=== PATIENT | female | born 1985 | race Caucasian/White ===

== ENCOUNTER 2018-01-09 15:59 | Outpatient (REF) | payer BC, SELFPAY ==
[2018-01-09 21:11] LABS: Abs Immature Grans 0.06 k/cumm (0.0-0.09); Absolute Basophil Count 0.06 k/cumm (0.0-0.2); Absolute Eosinophil Count 0.32 k/cumm (0.0-0.7); Absolute Lymphocyte Count 3.63 k/cumm (1.2-3.4); Absolute Neutrophil Count 10.35 k/cumm (1.2-6.7); Basophils % 0.4; Eosinophils % 2.1; HCT 41.1 % (36.0-46.0); Immature Grans % 0.4; Lymphocytes % 23.6; Mean Corp. HGB Concentration 31.6 g/dL (32.0-36.0); Mean Corpuscular Hemoglobin 26.9 pg (27.0-33.0); Mean Corpuscular Volume 84.9 fL (80-95); Mean Platelet Volume 12.7 fL (8.0-11.0); Monocytes % 6.2; Neutrophils % 67.3; Platelet Count 357 x1000/uL (130-400); Prothrombin Time 9.4 sec (9.3-10.8); RBC 4.84 m/cumm (4.00-5.20); RBC Distribution Width 15.9 % (11.7-14.6); White Blood Cell Count 15.38 k/cumm (4.4-10.8)
[2018-01-09 21:14] LABS: Absolute Monocyte Count 0.95 k/cumm (0.11-0.7)
[2018-01-09 21:25] LABS: ALT 33 U/L (12-78); AST 23 U/L (15-37); Albumin 3.9 g/dL (3.4-5.0); Alkaline Phosphatase 92 U/L (46-116); Anion Gap 13.8 mmol/L (3-11); BUN 13 mg/dL (7-18); Bilirubin, Total 0.3 mg/dL (0.2-1.0); C-Reactive Protein 2.03 mg/dL (0.0-0.3); CO2 20.2 mmol/L (21.0-32.0); CREATININE 1.01 mg/dL (0.55-1.02); Calcium 9.4 mg/dL (8.5-10.1); Chloride 104 mmol/L (98-107); Creatine Kinase 69 U/L (26-192); Glucose 74 mg/dL (70-100); Potassium 4.5 mmol/L (3.5-5.1); Sodium 138 mmol/L (136-145); TSH (W/Ref FT4) 1.23 uIU/mL (0.358-3.74)
[2018-01-09 21:46] LABS: ESR 61 MM/HR (0-20)
[2018-01-13 12:43] LABS: Rheumatoid Factor 8 IU/mL (<12.5)
[2018-01-13 14:56] LABS: ANA Interpretation Negative (NEGAT)
== END 2018-01-09 16:19 ==
LOC: NCHCN 15:59
PROVIDERS: PCP Physician Assistant Medical; Visit Provider Physician Assistant Medical
DX: R04.0 Epistaxis (principal); R42 Dizziness and giddiness; M54.5 Low back pain; R70.0 Elevated erythrocyte sedimentation rate
CPT/HCPCS: 80053; 82550; 85652; 84443; 85025; 85610; 85730; 86038; 86140; 86431

== ENCOUNTER 2018-01-14 13:00 | Outpatient (CLI) | payer BC, SELFPAY ==
--- NOTE | 2018-01-14 13:40 | DI.RAD_ITS ---
SYMPTOMS/DIAGNOSIS: BILATERAL KNEE PAIN LEFT KNEE: Three views. No priors. The joint spaces are well maintained. The articular surfaces are unremarkable. There are small enthesophytes at the superior and inferior patella. The bones are intact and normally mineralized. The soft tissues are unremarkable. IMPRESSION: Negative examination. RIGHT KNEE: Three views. Comparison is 07/19/16. There is mild narrowing at the medial femorotibial joint space. Periarticular spurring is seen involving all three joint compartments, particularly the medial femorotibial joint. The bones are intact and normally mineralized. The soft tissues are unremarkable. IMPRESSION: Stable mild to moderate degenerative changes of the right knee.
== END 2018-01-14 13:20 ==
PROVIDERS: PCP Physician Assistant Medical; Visit Provider Student in an Organized Health Care Education/Training Program
DX: M25.561 Pain in right knee (principal); M25.562 Pain in left knee; M17.11 Unilateral primary osteoarthritis, right knee
CPT/HCPCS: 73562

== ENCOUNTER 2018-01-26 15:10 | Outpatient (CLI) | payer BC, SELFPAY ==
[2018-01-28 13:36] LABS: HLA-B27 Result Negative
== END 2018-01-26 15:30 ==
PROVIDERS: PCP Physician Assistant Medical; Visit Provider Otolaryngology Otolaryngology/Facial Plastic Surgery
DX: R70.0 Elevated erythrocyte sedimentation rate (principal); M54.5 Low back pain
CPT/HCPCS: 36415; 86812

== ENCOUNTER 2018-01-29 00:58 | Outpatient (CLI) | payer BC, SELFPAY ==
--- NOTE | 2018-01-29 07:52 | DI.RAD_ITS ---
SYMPTOMS/DIAGNOSIS: NATIVIDAD KNEE INJECTIONS, OSTEOARTHRITIS BOTH KNEES, MORBID OBESITY Fluoroscopy Time: 2 sec Spot films obtained demonstrate injections of contrast material into both knees with needles positioned over the lateral tibiofemoral joint. Please see Dr. Newell's procedure report for further information.
[2018-01-29] MEDS: Omnipaque 300 MG/ML 10 ML BTL IJ ×2 (09:48→09:53)
[2018-01-29] MEDS: methylPREDNISolone ACETATE 80 MG/ML VIAL IM ×2 (09:51→09:55)
[2018-01-29] MEDS: Bupivacaine 0.5% Pres-Free 10 ML VIAL 30 ML IJ ×2 (09:51→09:54)
[2018-01-29] MEDS: Lidocaine 2% Multi-Dose 20 ML VIAL IJ ×2 (09:53→09:55)
--- NOTE | 2018-01-29 12:58 | W.PROCNOTE ---
Date of service: 01/29/18 Time of Service: 09:58 Procedure Note Date of procedure: 01/29/18 Procedure: Bilateral Knee Injection with Fluoroscopic Guidance Surgeon/Proceduralist/Physician: Gabino Newell Procedure Diagnosis: Bilateral Knee Pain Procedure Indications: Sanam has had persistent pain of the bilateral knees. Noninvasive measures have been tried. To serve as both diagnostic and therapeutic, an injection under fluoroscopy was recommended due to her morbid obesity. I had discussed the risks of the procedure and the patient elected to proceed. Procedure Description: Sanam was greeted in the flouroscopy room. The correct side was identified and the consent was reviewed with the patient and signed. The patient was then placed in the supine position on the fluoroscopy table. The LEFT knee was then prepped with Chloraprep. The superolateral injection starting point was identiifed by bony landmarks and fluoroscopy. The skin and soft tissue in the tract of the injection was anesthetized with 1% Lidocaine. A spinal needle was then inserted deep into the knee at the level of the superior patella under fluoroscopic guidance. However, I was unable to confidently get into the knee joint. A small amount of Omnipaque solution was injected which showed I was not in the joint. I then prepped the anterolateral aspect of the knee and approached the knee from the anterior position. After the skin was anesthetized the spinal needle was advanced into the joint. A small amount of Omnipaque was then used to confirm intraarticular placement. Once confirmed, the knee was injected with 5cc of 0.5% Bupivicaine and 80mg of Depo-Medrol. A bandaid was placed on the injection site. Sanam was repositioned on the fluoro table. The anterior aspect of the right knee was then prepped with Chloraprep. After the skin was anesthetized with 1% Lidocaine, the spinal needle was advanced into the joint. A small amount of Omnipaque was then used to confirm intraarticular placement. Once confirmed, the knee was injected with 5cc of 0.5% Bupivicaine and 80mg of Depo-Medrol. A bandaid was placed on the injection site. The patient tolerated the procedure well and noted improvement in pre-injection pain.
== END 2018-01-29 01:18 ==
PROVIDERS: PCP Physician Assistant Medical; Visit Provider Student in an Organized Health Care Education/Training Program
DX: M25.561 Pain in right knee (principal); M25.562 Pain in left knee
CPT/HCPCS: 20610; 77002; J1040; J3490

== ENCOUNTER 2018-02-03 13:17 | Emergency (ER) | payer BC, SELFPAY ==
[2018-02-03] VITALS (19 sets, daily range): BP systolic 93–143; BP diastolic 67–91; PULSE 81–110; RESP 16–27; TEMP 36.6; O2SAT 98–100
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
[2018-02-03] MEDS: Meclizine 25 MG TAB PO (14:37)
[2018-02-03] MEDS: Normal Saline 1,000 ML 1000 ML IV (15:00)
[2018-02-03 15:24] LABS: Abs Immature Grans 0.12 k/cumm (0.0-0.09); Absolute Basophil Count 0.06 k/cumm (0.0-0.2); Absolute Eosinophil Count 0.47 k/cumm (0.0-0.7); Absolute Monocyte Count 1.25 k/cumm (0.11-0.7); Absolute Neutrophil Count 14.26 k/cumm (1.2-6.7); Basophils % 0.3; Eosinophils % 2.4; HCT 37.4 % (36.0-46.0); HGB 11.8 g/dL (12.0-15.5); Immature Grans % 0.6; Lymphocytes % 17.4; Mean Corp. HGB Concentration 31.6 g/dL (32.0-36.0); Mean Corpuscular Hemoglobin 27.1 pg (27.0-33.0); Mean Platelet Volume 11.3 fL (8.0-11.0); Monocytes % 6.4; Neutrophils % 72.9; Platelet Count 318 x1000/uL (130-400); RBC 4.35 m/cumm (4.00-5.20); RBC Distribution Width 16.3 % (11.7-14.6); White Blood Cell Count 19.56 k/cumm (4.4-10.8)
[2018-02-03 15:34] LABS: Bilirubin Negative (Negative); Blood Negative (Negative); Clarity Clear; Glucose Negative (Negative); Ketones Negative (Negative); Leukocyte Esterase Trace (Negative); Nitrite Negative (Negative); Specific Gravity 1.015 (1.005-1.025); Urobilinogen 0.2 EU/dL (Up TO 0.2); pH 5.5 (5-8)
[2018-02-03 15:41] LABS: ALT 22 U/L (12-78); AST 11 U/L (15-37); Albumin 3.1 g/dL (3.4-5.0); Alkaline Phosphatase 84 U/L (46-116); Anion Gap 8.1 mmol/L (3-11); BUN 14 mg/dL (7-18); Bilirubin, Total 0.5 mg/dL (0.2-1.0); CO2 24.9 mmol/L (21.0-32.0); CREATININE 0.88 mg/dL (0.55-1.02); Calcium 8.8 mg/dL (8.5-10.1); Chloride 104 mmol/L (98-107); Glucose 93 mg/dL (70-100); Magnesium 2.3 mg/dL (1.8-2.4); Potassium 4.1 mmol/L (3.5-5.1); Sodium 137 mmol/L (136-145)
[2018-02-03 15:50] LABS: RBC 0-2 (0-2)
--- NOTE | 2018-02-03 15:50 | DI.RAD_ITS ---
SYMPTOMS/DIAGNOSIS: NEAR SYNCOPE PA AND LATERAL CHEST: The heart is normal in size. The lungs are clear. The mediastinal structures and pleura appear intact. CONCLUSION: Normal chest.
[2018-02-03 15:51] LABS: Bacteria Moderate HPF (Negative); Epithelial Cells Few HPF (Negative); Other Cells Rare Renal (Negative)
[2018-02-03 15:52] LABS: C & S Indicated? No/Sq. Contamination; Casts Negative LPF (Negative); Crystals Negative HPF (Negative); Mucus Negative (Negative)
[2018-02-03 15:53] LABS: Troponin I < 0.02 ng/mL (0.00-0.06)
[2018-02-03] MEDS: Acetaminophen 500 MG TAB 1000 MG PO (16:09)
[2018-02-03] MEDS: Cephalexin 500 MG CAP PO (16:09)
== END 2018-02-03 16:25 | disposition home or self-care (01) ==
PROVIDERS: Emergency Provider Emergency Medicine; PCP Physician Assistant Medical
DX: N39.0 Urinary tract infection, site not specified (principal); R42 Dizziness and giddiness
CPT/HCPCS: 36415; 80053; 81025; 93005; 96360; 99284; 71046; 81003; 81015; 83735; 84484; 85025; 93010

== ENCOUNTER 2018-02-16 15:16 | Outpatient (CLI) | payer BC, SELFPAY ==
[2018-02-16 16:22] LABS: Prothrombin Time 9.5 sec (9.3-10.8)
[2018-02-19 11:37] LABS: SS-A Antibody 2.2 Units (<20); SS-B (La) Ab, IgG 2.7 Units (<20)
[2018-02-19 13:08] LABS: c-ANCA Negative (Negative); p-ANCA Negative (Negative)
== END 2018-02-16 15:36 ==
PROVIDERS: PCP Physician Assistant Medical; Visit Provider Otolaryngology Otolaryngology/Facial Plastic Surgery
DX: R30.0 Dysuria (principal); R04.0 Epistaxis; J34.0 Abscess, furuncle and carbuncle of nose; J31.0 Chronic rhinitis; J34.89 Other specified disorders of nose and nasal sinuses
CPT/HCPCS: 36415; 87077; 85610; 85730; 86235; 86255; 87086; 87186

== ENCOUNTER 2018-12-18 18:56 | Outpatient (REF) | payer BC, SELFPAY | END 2018-12-18 19:16 | LOC: NCHCN 18:56 | PROVIDERS: PCP Physician Assistant Medical; Visit Provider Physician Assistant Medical | DX: N39.0 Urinary tract infection, site not specified (principal) | CPT/HCPCS: 87077; 87086; 87186 ==

== ENCOUNTER 2018-12-19 10:34 | Outpatient (CLI) | payer BC, SELFPAY ==
[2018-12-19 11:18] LABS: Abs Immature Grans 0.11 k/cumm (0.0-0.09); Absolute Basophil Count 0.05 k/cumm (0.0-0.2); Absolute Eosinophil Count 0.53 k/cumm (0.0-0.7); Absolute Lymphocyte Count 4.07 k/cumm (1.2-3.4); Basophils % 0.3; Eosinophils % 3.5; HCT 38.9 % (36.0-46.0); Immature Grans % 0.7; Lymphocytes % 27.1; Mean Corp. HGB Concentration 30.8 g/dL (32.0-36.0); Mean Corpuscular Hemoglobin 26.7 pg (27.0-33.0); Mean Corpuscular Volume 86.4 fL (80-95); Mean Platelet Volume 11.4 fL (8.0-11.0); Monocytes % 5.7; Neutrophils % 62.7; Platelet Count 464 x1000/uL (130-400); RBC Distribution Width 16.1 % (11.7-14.6); White Blood Cell Count 15.02 k/cumm (4.4-10.8)
[2018-12-19 11:39] LABS: Absolute Monocyte Count 0.86 k/cumm (0.11-0.7); Absolute Neutrophil Count 9.42 k/cumm (1.2-6.7)
[2018-12-19 12:32] LABS: Anion Gap 12.9 mmol/L (3-11); BUN 11 mg/dL (7-18); CO2 23.1 mmol/L (21.0-32.0); Calcium 9.1 mg/dL (8.5-10.1); Chloride 106 mmol/L (98-107); Estimated GFR 51.74 (mL/min/1.73m2); Glucose 109 mg/dL (70-100); Potassium 4.1 mmol/L (3.5-5.1); Sodium 142 mmol/L (136-145); TSH 2.71 uIU/mL (0.36-3.74)
== END 2018-12-19 10:54 ==
PROVIDERS: PCP Physician Assistant Medical; Visit Provider Physician Assistant Medical
DX: Z79.899 Other long term (current) drug therapy (principal)
CPT/HCPCS: 36415; 80048; 84443; 85025

== ENCOUNTER 2019-01-12 15:24 | Outpatient (REF) | payer BC, SELFPAY | END 2019-01-12 15:44 | LOC: NCHCN 15:24 | PROVIDERS: PCP Physician Assistant Medical; Visit Provider Physician Assistant Medical | DX: N39.0 Urinary tract infection, site not specified (principal) | CPT/HCPCS: 87086 ==

== ENCOUNTER 2019-11-08 14:36 | Outpatient (REF) | payer BC, SELFPAY ==
[2019-11-08 19:50] LABS: ALT 41 U/L (14-59); AST 28 U/L (15-37); Albumin 3.8 g/dL (3.4-5.0); Alkaline Phosphatase 90 U/L (46-116); BUN 10 mg/dL (7-18); Bilirubin, Total 0.6 mg/dL (0.2-1.0); CREATININE 1.04 mg/dL (0.55-1.02); Calcium 9.6 mg/dL (8.5-10.1); Calculated LDL 90 mg/dL (<100); Chloride 104 mmol/L (98-107); Cholesterol 161 mg/dL (<200); Glucose 94 mg/dL (74-106); HDL Cholesterol 44 mg/dL (40-60); Potassium 4.5 mmol/L (3.5-5.1); Sodium 140 mmol/L (136-145); Total Protein 7.8 g/dL (6.4-8.2); Triglyceride 137 mg/dL (<150)
[2019-11-08 19:51] LABS: Hemoglobin A1C 5.4 % (3.8-5.6)
== END 2019-11-08 14:56 ==
LOC: NCHCN 14:36
PROVIDERS: PCP Physician Assistant Medical; Visit Provider Physician Assistant Medical
DX: E66.01 Morbid (severe) obesity due to excess calories (principal)
CPT/HCPCS: 80053; 80061; 83036

== ENCOUNTER 2019-11-25 00:37 | Outpatient (CLI) | payer BC, SELFPAY ==
--- NOTE | 2019-11-25 | DI.MAMMO_ITS ---
EXAM: MG MAMMO DIAGNOSTIC BI CLINICAL HISTORY: LT BREAST LUMP. TECHNIQUE: Craniocaudal and mediolateral oblique Full Field Digital Mammography views with Computer Aided Diagnosis followed by Tomosynthesis and right breast ultrasound. COMPARISON: Baseline examination. FINDINGS: Mammography/Tomosynthesis: Masses/Architectural Distortion: Well-circumscribed ovoid density in the upper central right breast. The palpable abnormality corresponds to a subcutaneous well-circumscribed nodule in the upper outer quadrant of the right breast. Microcalcifictions: No suspicious pleomorphic-type are seen. Skin Thickening/Nipple Retraction: None. Right breast US: Echotexture: Normal appearance of the glandular tissue. Shadowing: No suspicious foci. Cyst: 2 adjacent simple cysts seen at the 12 o'clock position of the right breast 4 cm from the nippl e. They correspond to the ovoid density seen on the mammogram. The larger measures 1.1 cm in length . The smaller measures 1.0 cm in length. There is a 0.4 cm cyst at the 12 o'clock position of the r ight breast 3 cm from the nipple. Solid lesions: The palpable abnormality corresponds to a 0.4 cm hypoechoic nodule in the subcutaneous tissues. This likely represents a sebaceous cyst. Ductal dilation: None. IMPRESSION: 1. No evidence of malignancy is noted. 2. Unless there is more urgent need, follow-up screening mammography is recommended, as per [place] [employer] guidelines. 3. The findings were discussed with the patient on the date of the examination. BI-RADS Cat 2 - Benign Findings Breast Density - Category B - Scattered areas of fibroglandular density A negative radiographic report should not delay biopsy if a dominant or clinically suspicious mass is present. Up to ten percent of cancers are not identified on mammography. A negative report may reinforce clinical impression. Adenosis and dense breasts may obscure an underlying neoplasm. False positive reports average 6 to 10%. Patient will receive a letter notifying them of these results.
== END 2019-11-25 00:57 ==
PROVIDERS: PCP Physician Assistant Medical; Visit Provider Physician Assistant Medical
DX: Z12.39 Encounter for other screening for malignant neoplasm of breast (principal); N63.20 Unspecified lump in the left breast, unspecified quadrant; N60.01 Solitary cyst of right breast
CPT/HCPCS: 76642; 77062; 77066; G0279

== ENCOUNTER 2020-08-28 18:58 | Outpatient (REF) | payer BC, SELFPAY ==
[2020-08-28 19:38] LABS: Anion Gap 11.9 mmol/L (3-11); BUN 10 mg/dL (7-18); CO2 22.1 mmol/L (21.0-32.0); CREATININE 0.9 mg/dL (0.55-1.02); Calcium 9.4 mg/dL (8.5-10.1); Chloride 106 mmol/L (98-107); Glucose 104 mg/dL (74-106); Magnesium 2.1 mg/dL (1.8-2.4); Potassium 4.7 mmol/L (3.5-5.1); Sodium 140 mmol/L (136-145)
[2020-08-28 19:50] LABS: Hemoglobin A1C 5.6 % (<5.7)
== END 2020-08-28 18:59 | disposition home or self-care (01) ==
LOC: NCHCN 18:58
PROVIDERS: PCP Physician Assistant Medical; Visit Provider Physician Assistant Medical
DX: R73.03 Prediabetes (principal); R25.2 Cramp and spasm
CPT/HCPCS: 80048; 83036; 83735

== ENCOUNTER 2021-02-13 15:05 | Outpatient (REF) | payer BC, SELFPAY ==
[2021-02-13 19:56] LABS: ALT 41 U/L (14-59); AST 24 U/L (15-37); Alkaline Phosphatase 93 U/L (46-116); Anion Gap 12.5 mmol/L (3-11); BUN 10 mg/dL (7-18); Bilirubin, Total 0.6 mg/dL (0.2-1.0); CO2 24.5 mmol/L (21.0-32.0); Calcium 9.5 mg/dL (8.5-10.1); Calculated LDL 77 mg/dL (<100); Chloride 105 mmol/L (98-107); Cholesterol 139 mg/dL (<200); Glucose 117 mg/dL (74-106); HDL Cholesterol 43 mg/dL (40-60); Magnesium 2.2 mg/dL (1.8-2.4); Potassium 4.5 mmol/L (3.5-5.1); Sodium 142 mmol/L (136-145); TSH (W/Ref FT4) 1.49 uIU/mL (0.36-3.74); Total Protein 7.8 g/dL (6.4-8.2); Triglyceride 99 mg/dL (<150)
== END 2021-02-13 15:06 | disposition home or self-care (01) ==
LOC: NCHCN 15:05
PROVIDERS: PCP Physician Assistant Medical; Visit Provider Physician Assistant Medical
DX: R07.89 Other chest pain (principal)
CPT/HCPCS: 80053; 80061; 83735; 84443

== ENCOUNTER 2021-04-11 13:41 | Emergency (ER) | payer BC, SELFPAY ==
--- NOTE | 2021-04-11 13:30 | RT.EKG_ITS ---
APPROVED REPORT Exam: Resting ECG Reason for Exam: chest pain Patient Location: E HR:99 bpm ECG Measurements Heart Rate 99 AXIS TX 186 P 37 QRSd 87 QRS 22 QT 362 T 6 QTc 464 Conclusion Sinus rhythm...normal P axis, V-rate 60- 99
--- OUTSIDE RECORDS SUMMARY | 2021-04-11 13:49 | XMS_ITS ---
:1985 Author Care Team Providers Name Role Phone ISMAEL NAVARRO Primary Care Provider [phone] LINCSARAY OTHER [phone] Allergies Code Code System Name Reaction Severity Status Onset NKDA ? Medications Name Status Start Date Stop Date ? ? amox/k clav tab 665125 Completed ? 018 aripiprazole 10 mg tablet Completed ? 2018 aripiprazole 2 mg tablet Completed ? 019 Take 1 tablet every day by oral route for 30 days. aripiprazole 5 mg tablet Active ? Not obie ilable baclofen 10 mg tablet Active ? Not availa ble baclofen 10 mg tabs Completed ? 05/27/2018 buspirone hcl 7.5 mg tabs Completed ? 2017 celecoxib 200 mg capsule Active ? Not obie ilable cephalexin 500 mg capsule Completed ? 2018 ciprofloxacin 500 mg tablet Completed ? 10/2018 cranberry Active ? Not available cyclobenzaprine 10 mg tablet Active ? Not available Depo-Provera Active ? Not available DHEA Active ? Not available doxepin 100 mg capsule Active ? Not avail able doxepin 75 mg capsule Completed ? 03/10/2019 doxepin hcl 75 mg caps Completed ? 8 doxycycline hyclate 100 mg tabs Completed ? 12/26/2017 furosemide 20 mg tablet Completed ? 03/10/20 19 Take 1 tablet every day by oral route for 30 days. gabapentin 300 mg caps Completed ? 9 gabapentin 300 mg capsule Completed ? 2018 gabapentin 600 mg tablet Active ? Not obie ilable hydrocodone 5 mg-acetaminophen 325 mg Completed ? 03/10/2019 tablet hydroxyzine hcl 25 mg tabs Active ? Not a vailable as needed lamotrigine 200 mg tablet Completed ? 2017 Take 1 tablet every day by oral route. lamotrigine 200 mg tabs Completed ? 12/27/19 18 Latuda 20 mg tablet Completed ? 03/10/2019 Latuda 40 mg tablet Completed ? 03/10/2019 meclizine 25 mg tablet Completed ? 9 medroxyprogesterone 150 mg/mL Active ? No t available intramuscular suspension medroxyprogesterone acetate 150 mg/ml Completed ? 12/26/2017 susp metformin 500 mg tablet Completed ? 12/27/19 18 Take 1 tablet every day by oral route. metformin ER 500 mg tablet,extended Active ? Not available release 24 hr metformin hcl er 500 mg tb24 Completed ? metformin hydrochloride er 500 mg tb24 Completed ? 12/26/2017 montelukast sodium 10 mg tabs Completed ? multivitamin Completed ? 12/26/2017 olanzapine 5 mg tablet Active ? Not avail able omeprazole 40 mg cpdr Completed ? 12/26/2017 ondansetron odt 4 mg tbdp Completed ? 2017 oxycodone-acetaminophen 5 mg-325 mg Active ? Not available tablet pantoprazole 40 mg tablet,delayed Active ? Not available release pantoprazole sodium 40 mg tbec Completed ? 0 05/27/2018 prednisone 10 mg tablet Completed ? 05/27/19 19 prednisone 10 mg tabs Completed ? 12/26/2017 Probiotic Completed ? 05/27/2018 quetiapine fumarate 50 mg tabs Active ? N ot available scopolamine 1 mg/3days pt72 Completed ? 12/04 sulfamethoxazole 800 mg-trimethoprim Active ? Not available 160 mg tablet topiramate 100 mg tablet Completed ? 019 topiramate 100 mg tabs Completed ? 8 topiramate 25 mg tabs Completed ? 05/27/2018 tramadol 50 mg tablet Completed ? 03/10/2019 Ventolin HFA 90 mcg/actuation aerosol Active ? Not available inhaler virtussin ac jimenez 100-10/5 Completed ? 2017 Vraylar 1.5 mg capsule Completed ? 9 Vraylar 3 mg capsule Active ? Not availab le Problems Name Status Onset Date Source ? Hypothyroidism Active ? ? Severe Obesity Active ? History Bipolar Disorder Active ? History Borderline Personality Disorder Active ? ? Alcohol Abuse Active ? ? Tobacco User Active ? ? Posttraumatic Stress Disorder Active ? Hi story Depressive Disorder Active ? ? Obstructive Sleep Apnea Syndrome Active ? History Hallucinations Active ? History Sleep Disorder Active ? History Sleep Apnea Active ? History Abdominal Pain Active ? ? History of Manic Depressive Disorder Active ? ? Procedures None recorded. Results Lab Results None recorded. Past Encounters 03/09/2021 Sharon Pineda NP: [address] [place] [address], Ph. Social History Tobacco Smoking Status Never Smoker Vaccine List Vaccine Type influenza, seasonal, injectable 05/11/2013 Tdap 11/18/2011 Plan of Care Reminders Provider Appointments None ? ? recorded. Lab None ? ? recorded. Referral None ? ? recorded. Procedures None ? ? recorded. Surgeries None ? ? recorded. Imaging None ? ? recorded. Vitals 03/10/2019 02:30PM Office 30 Height Weight BMI Blood Pressure 165.1 cm 235.87 kg 86.5 kg/m2 142/101 mm[Hg] 05/27/2018 11:00AM Office 30 Height Weight BMI Blood Pressure 165.1 cm 214.1 kg 78.5 kg/m2 130/80 mm[Hg] 12/26/2017 12:30PM Office 30 Height Weight BMI Blood Pressure 165.1 cm 215.46 kg 79 kg/m2 130/86 mm[Hg] 04/15/2017 Height Blood Pressure 165.1 cm 133/84 mm[Hg] 04/15/2017 Weight 208.2 kg 02/19/2016 Height Blood Pressure 165.1 cm 126/84 mm[Hg] 02/19/2016 Weight 226.94 kg 11/30/2015 Height Blood Pressure 165.1 cm 128/80 mm[Hg] 11/30/2015 Weight 227.02 kg
[2021-04-11 13:58] VITALS: BP 138/98; PULSE 100; RESP 22; TEMP 36.9; O2SAT 96
--- NOTE | 2021-04-11 14:15 | DI.RAD_ITS ---
Exam(s) XR CHEST 2V PA LATERAL EXAM: XR CHEST 2V PA LATERAL CLINICAL HISTORY: RUQ pain TECHNIQUE: 2D digital imaging was performed of the chest. Two images were obtained. PA and lateral views were obtained. COMPARISON: CR XR CHEST 2V PA LATERAL from 02/03/2018 FINDINGS: MEDIASTINUM: Normal. HEART: Normal. PULMONARY VASCULATURE: Normal. LUNGS: Clear. PLEURAL SPACE: No pleural effusion or pneumothorax. BONE:Within normal limits for the patient's age. OTHER FINDINGS:Normal. IMPRESSION: No acute pulmonary findings. DATA REPOSITORY: RADIATION DOSE DELIVERED:
--- NOTE | 2021-04-11 14:15 | DI.US_ITS ---
Exam(s) US ABDOMEN LIMITED EXAM: US ABDOMEN LIMITED CLINICAL HISTORY: RUQ pain TECHNIQUE: Ultrasound abdomen performed using standard protocol. COMPARISON: US ABD PELVIS TRANSVAG from 08/08/2017 US ABD PELVIS TRANSVAG from 08/08/2017 FINDINGS: PANCREAS: Normal where visualized. LIVER: There is diffuse increased echogenicity consistent with fatty infiltration. The liver is enla rged measuring 23 cm long. Hepatopedal flow in the Portal Vein. GALLBLADDER: No evidence of cholelithiasis. No evidence of wall thickening. No pericholecystic fluid identified. BILIARY SYSTEM: Common bile duct measures < 7 mm. No intrahepatic biliary ductal dilation. PAINTING'S SIGN: Negative. Right kidney: Right kidney is unremarkable. No evidence of renal calculi. No evidence of hydronephro sis. No renal mass or cyst identified. ASCITES: None seen. IMPRESSION: Hepatic steatosis and hepatomegaly. DATA REPOSITORY:
[2021-04-11] MEDS: ACETAMINOPHEN 1,000 MG/100 ML BTL 400 MG IVPB (14:38)
[2021-04-11] MEDS: Normal Saline 1,000 ML 1000 ML IV (14:38)
[2021-04-11 14:41] LABS: Abs Immature Grans 0.12 10^3/uL (0.0-0.06); Absolute Eosinophil Count 0.43 10^3/uL (0.0-0.7); Absolute Lymphocyte Count 5.61 10^3/uL (1.2-3.4); Absolute Monocyte Count 0.93 10^3/uL (0.1-0.8); Basophils % 0.6; Eosinophils % 2.4; HCT 41.3 % (36.0-46.0); HGB 12.7 g/dL (11.2-15.7); Immature Grans % 0.7; Lymphocytes % 31.4; MCHC 30.8 % (32.0-36.0); MCV 87.9 fL (80-95); MPV 11.9 fL (8.0-11.0); Monocytes % 5.2; Neutrophils % 59.7; Nucleated RBC 0 %; Platelet Count 408 10^3/uL (130-400); RDW 15.6 % (11.7-14.6); RDW-SD 50.4 fL; WBC 17.88 10^3/uL (4.4-10.8)
[2021-04-11 14:42] LABS: Absolute Basophil Count 0.11 10^3/uL (0.0-0.2); Absolute Neutrophil Count 10.67 10^3/uL (1.2-6.7)
[2021-04-11 14:54] LABS: Diff Comment Agrees w/ Instrument; RBC Morphology Normal
[2021-04-11 15:02] LABS: ALT 34 U/L (14-59); AST 23 U/L (15-37); Albumin 3.8 g/dL (3.4-5.0); Alkaline Phosphatase 87 U/L (46-116); Anion Gap 9.8 mmol/L (3-11); BUN 11 mg/dL (7-18); Bilirubin, Total 0.9 mg/dL (0.2-1.0); CO2 25.2 mmol/L (21.0-32.0); CREATININE 1.1 mg/dL (0.55-1.02); Calcium 9.3 mg/dL (8.5-10.1); Chloride 103 mmol/L (98-107); Estimated GFR 56.52 (mL/min/1.73m2); Glucose 110 mg/dL (74-106); Lipase 71 U/L (73-393); Potassium 3.8 mmol/L (3.5-5.1); Sodium 138 mmol/L (136-145); Total Protein 8.5 g/dL (6.4-8.2); Troponin I < 0.05 ng/mL (<0.06)
[2021-04-11 15:06] LABS: D-Dimer 392 ng/mlFEU (<500)
[2021-04-11 15:31] VITALS: RESP 22
[2021-04-11 15:59] LABS: Bilirubin Negative (Negative); Blood Trace-intact (Negative); Clarity Clear (Clear); Glucose Negative (Negative); Ketones Negative (Negative); Leukocyte Esterase Negative (Negative); Nitrite Negative (Negative); Specific Gravity 1.015 (1.005-1.025); Urobilinogen 0.2 EU/dL (Up TO 0.2)
[2021-04-11 16:07] LABS: Bacteria Moderate HPF (Negative); C & S Indicated? No/Sq. Contamination; Casts Negative LPF (Negative); Crystals Negative HPF (Negative); Epithelial Cells Many HPF (Negative); Mucus Negative (Negative); RBC Negative HPF (0-2)
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
--- NOTE | 2021-04-11 17:15 | RT.EKG_ITS ---
APPROVED REPORT Exam: Resting ECG Reason for Exam: Patient Location: E HR:91 bpm ECG Measurements Heart Rate 91 AXIS WA 183 P 15 QRSd 90 QRS 1 QT 366 T 2 QTc 451 Conclusion Sinus rhythm...normal P axis, V-rate 60- 99 Low voltage, precordial leads...precordial leads <1.0mV Consider anterior infarct...Q >30mS in V2-V5. Sinus. No STEMI. I have reviewed and interpreted ECG and agree with software generated interpretation.
[2021-04-11 17:53] LABS: Troponin I < 0.05 ng/mL (<0.06)
== END 2021-04-11 18:20 | disposition home or self-care (01) ==
PROVIDERS: Physician Assistant; Emergency Provider Physician Assistant; PCP Physician Assistant Medical
DX: R07.89 Other chest pain (principal); R10.11 Right upper quadrant pain; R10.13 Epigastric pain; R07.81 Pleurodynia
CPT/HCPCS: 36415; 80053; 81025; 83690; 93005; 96361; 96374; 99285; 71046; 76705; 81003; 81015; 84484; 85025; 85379; 93010; 99284; J0131

== ENCOUNTER 2021-06-05 21:05 | Outpatient (REF) | payer BC, SELFPAY ==
[2021-06-07 05:11] LABS: Vitamin D 25 Total 7.6 ng/mL (30-100)
== END 2021-06-05 21:06 | disposition home or self-care (01) ==
LOC: NCHCN 21:05
PROVIDERS: PCP Physician Assistant Medical; Visit Provider Physician Assistant Medical
DX: E55.9 Vitamin D deficiency, unspecified (principal)
CPT/HCPCS: 82306

== ENCOUNTER 2021-07-04 16:40 | Outpatient (REF) | payer BC, SELFPAY ==
[2021-07-04 22:14] LABS: Abs Immature Grans 0.14 10^3/uL (0.0-0.06); Basophils % 0.4; Eosinophils % 1.6; HCT 40.5 % (36.0-46.0); HGB 12.5 g/dL (11.2-15.7); Immature Grans % 0.7; MCH 27.5 pg (27.0-33.0); MCHC 30.9 % (32.0-36.0); MCV 89.2 fL (80-95); MPV 12.5 fL (8.0-11.0); Monocytes % 5.6; Neutrophils % 71.7; Nucleated RBC 0 %; Platelet Count 388 10^3/uL (130-400); RBC 4.54 10^6/uL (3.93-5.22); RDW 15.4 % (11.7-14.6); RDW-SD 50.6 fL; WBC 20.06 10^3/uL (4.4-10.8)
[2021-07-04 22:15] LABS: Absolute Basophil Count 0.08 10^3/uL (0.0-0.2); Absolute Eosinophil Count 0.32 10^3/uL (0.0-0.7); Absolute Neutrophil Count 14.38 10^3/uL (1.2-6.7)
[2021-07-04 22:16] LABS: Absolute Lymphocyte Count 4.01 10^3/uL (1.2-3.4); Absolute Monocyte Count 1.12 10^3/uL (0.1-0.8)
[2021-07-04 22:26] LABS: ALT 44 U/L (14-59); AST 28 U/L (15-37); Albumin 3.7 g/dL (3.4-5.0); Alkaline Phosphatase 93 U/L (46-116); Anion Gap 10.5 mmol/L (3-11); BUN 9 mg/dL (7-18); Bilirubin, Total 0.8 mg/dL (0.2-1.0); CO2 23.5 mmol/L (21.0-32.0); Calcium 9.4 mg/dL (8.5-10.1); Chloride 106 mmol/L (98-107); Glucose 103 mg/dL (74-106); Potassium 4.5 mmol/L (3.5-5.1); Sodium 140 mmol/L (136-145); Total Protein 7.8 g/dL (6.4-8.2)
== END 2021-07-04 16:41 | disposition home or self-care (01) ==
LOC: NCHCN 16:40
PROVIDERS: PCP Physician Assistant Medical; Visit Provider Physician Assistant Medical
DX: R42 Dizziness and giddiness (principal)
CPT/HCPCS: 80053; 85025

== ENCOUNTER 2021-07-17 18:41 | Outpatient (REF) | payer BC, SELFPAY ==
[2021-07-17 19:16] LABS: ESR 83 mm/hr (0-20)
[2021-07-17 19:36] LABS: C-Reactive Protein 2.86 mg/dL (0.0-0.3); FREE T4 1.14 ng/dL (0.76-1.46); TSH 1.36 uIU/mL (0.36-3.74)
[2021-07-18 09:24] LABS: Abs Immature Grans 0.13 10^3/uL (0.0-0.06); Absolute Basophil Count 0.11 10^3/uL (0.0-0.2); Basophils % 0.6; Eosinophils % 2.3; HCT 40.4 % (36.0-46.0); HGB 12.5 g/dL (11.2-15.7); Immature Grans % 0.7; Lymphocytes % 23.4; MCH 27.8 pg (27.0-33.0); MCHC 30.9 % (32.0-36.0); MCV 89.8 fL (80-95); MPV 12.7 fL (8.0-11.0); Monocytes % 5.9; Neutrophils % 67.1; Nucleated RBC 0 %; Platelet Count 415 10^3/uL (130-400); RDW 15.5 % (11.7-14.6); RDW-SD 50.7 fL; WBC 17.72 10^3/uL (4.4-10.8)
[2021-07-18 09:25] LABS: Absolute Eosinophil Count 0.41 10^3/uL (0.0-0.7); Absolute Lymphocyte Count 4.15 10^3/uL (1.2-3.4); Absolute Monocyte Count 1.05 10^3/uL (0.1-0.8); Absolute Neutrophil Count 11.89 10^3/uL (1.2-6.7)
[2021-07-18 11:25] LABS: COVID-19 RT-PCR UVMMC Result Negative (Negative)
[2021-07-18 18:25] LABS: FSH 1.4 mIU/mL (See Note); Prolactin 11.6 ng/mL (See Table)
[2021-07-19 09:56] LABS: HIV-1/2 Ag & Ab Screen Negative (Negative)
[2021-07-19 10:33] LABS: Lyme Ab w Rflx to Lyme Confirm Negative (Negative)
[2021-07-20 10:21] LABS: EBNA IgG Positive (Negative); EBV Interpretation (See Note); VCA IgG Positive (Negative); VCA IgM Negative (Negative)
[2021-07-21 21:22] LABS: Anaplasma phagocytophilum Negative (Negative); B. miyamotoi PCR Negative (Negative); Babesia divergens/MO-1 Negative (Negative); Babesia duncani Negative (Negative); Babesia microti Negative (Negative); Ehrlichia chaffeensis Negative (Negative); Ehrlichia ewingii/canis Negative (Negative); Ehrlichia muris eauclairensis Negative (Negative)
== END 2021-07-17 18:42 | disposition home or self-care (01) ==
LOC: NCHCN 18:41
PROVIDERS: PCP Physician Assistant Medical; Visit Provider Nurse Practitioner Family
DX: Z20.822 Contact with and (suspected) exposure to COVID-19 (principal); R42 Dizziness and giddiness; N95.1 Menopausal and female climacteric states
CPT/HCPCS: 85652; 86308; 87389; 87798; U0003; 83001; 84146; 84439; 84443; 85025; 86140; 86618; 86664; 86665

== ENCOUNTER 2021-07-19 11:01 | Outpatient (CLI) | payer BC, SELFPAY ==
--- NOTE | 2021-07-19 | DI.RAD_ITS ---
Exam(s) XR CHEST 2V PA LATERAL EXAM: XR CHEST 2V PA LATERAL CLINICAL HISTORY: FATIGUE,HOT FLASHES,ELEVATED WBC,N95.1,R53.83,D72.829. TECHNIQUE: 2D digital imaging was performed. COMPARISON: CR XR CHEST 2V PA LATERAL from 04/11/2021 FINDINGS: 2 views: Heart size is normal. The mediastinum is not widened. Lungs are clear. No infiltrates nor pleural effusions. IMPRESSION: No acute pulmonary findings. DATA REPOSITORY: RADIATION DOSE DELIVERED:
== END 2021-07-19 11:21 ==
LOC: DI 11:07
PROVIDERS: PCP Physician Assistant Medical; Visit Provider Nurse Practitioner Family
DX: R53.83 Other fatigue (principal); D72.829 Elevated white blood cell count, unspecified; N95.1 Menopausal and female climacteric states
CPT/HCPCS: 71046

== ENCOUNTER 2021-11-27 16:17 | Outpatient (REF) | payer BC, SELFPAY ==
[2021-11-27 16:13] LABS: Absolute Basophil Count 0.09 10^3/uL (0.0-0.2); Absolute Eosinophil Count 0.29 10^3/uL (0.0-0.7); Absolute Monocyte Count 0.92 10^3/uL (0.1-0.8); Basophils % 0.5; Eosinophils % 1.7; HGB 13.1 g/dL (11.2-15.7); Immature Grans % 0.6; Lymphocytes % 19.1; MCH 28.7 pg (27.0-33.0); MCHC 32.8 % (32.0-36.0); MCV 88 fL (80-95); MPV 12.8 fL (8.0-11.0); Monocytes % 5.3; Neutrophils % 72.8; Platelet Count 380 10^3/uL (130-400); RBC 4.57 10^6/uL (3.93-5.22); RDW-SD 47.8 fL
[2021-11-27 16:15] LABS: Absolute Neutrophil Count 12.59 10^3/uL (1.2-6.7)
[2021-11-27 16:31] LABS: Anion Gap 10.8 mmol/L (3-11); BUN 14 mg/dL (7-18); CO2 23.2 mmol/L (21.0-32.0); CREATININE 1.1 mg/dL (0.55-1.02); Calcium 9.6 mg/dL (8.5-10.1); Chloride 104 mmol/L (98-107); Glucose 107 mg/dL (74-106); Potassium 4.4 mmol/L (3.5-5.1); Sodium 138 mmol/L (136-145)
[2021-11-27 18:43] LABS: Vitamin D 25 Total 22.6 ng/mL (30-100)
== END 2021-11-27 16:18 | disposition home or self-care (01) ==
LOC: NCHCN 16:17
PROVIDERS: PCP Physician Assistant Medical; Visit Provider Physician Assistant Medical
DX: D72.829 Elevated white blood cell count, unspecified (principal); I10 Essential (primary) hypertension; E55.9 Vitamin D deficiency, unspecified
CPT/HCPCS: 80048; 82306; 85025

== ENCOUNTER 2021-12-24 14:37 | Outpatient (REF) | payer BC, SELFPAY | END 2021-12-24 14:38 | disposition home or self-care (01) | LOC: NCHCN 14:37 | PROVIDERS: PCP Physician Assistant Medical; Visit Provider Physician Assistant Medical | DX: R35.0 Frequency of micturition (principal) | CPT/HCPCS: 87086 ==

== ENCOUNTER 2022-01-25 15:48 | Outpatient (REF) | payer BC, SELFPAY ==
[2022-01-25 15:09] LABS: Abs Immature Grans 0.11 10^3/uL (0.0-0.06); Basophils % 0.6; Eosinophils % 2.5; HCT 40.4 % (36.0-46.0); HGB 12.5 g/dL (11.2-15.7); Immature Grans % 0.6; Lymphocytes % 22.6; MCH 27.5 pg (27.0-33.0); MCHC 30.9 % (32.0-36.0); MCV 89 fL (80-95); MPV 12.5 fL (8.0-11.0); Monocytes % 6.3; Neutrophils % 67.4; Platelet Count 397 10^3/uL (130-400); RBC 4.55 10^6/uL (3.93-5.22); RDW 14.3 % (11.7-14.6); RDW-SD 46.4 fL; WBC 18.18 10^3/uL (4.4-10.8)
[2022-01-25 15:10] LABS: Absolute Basophil Count 0.11 10^3/uL (0.0-0.2); Absolute Eosinophil Count 0.45 10^3/uL (0.0-0.7); Absolute Lymphocyte Count 4.11 10^3/uL (1.2-3.4); Absolute Monocyte Count 1.15 10^3/uL (0.1-0.8); Absolute Neutrophil Count 12.25 10^3/uL (1.2-6.7)
[2022-01-25 15:39] LABS: ALT 41 U/L (14-59); AST 25 U/L (15-37); Albumin 3.6 g/dL (3.4-5.0); Alkaline Phosphatase 81 U/L (46-116); Anion Gap 9.1 mmol/L (3-11); BUN 12 mg/dL (7-18); Bilirubin, Total 0.6 mg/dL (0.2-1.0); CO2 24.9 mmol/L (21.0-32.0); CREATININE 1.1 mg/dL (0.55-1.02); Calcium 9.5 mg/dL (8.5-10.1); Chloride 104 mmol/L (98-107); Estimated GFR 66.78 (mL/min/1.73m2); Glucose 100 mg/dL (74-106); Lipase 111 U/L (73-393); Potassium 4.5 mmol/L (3.5-5.1); Sodium 138 mmol/L (136-145); Total Protein 8.1 g/dL (6.4-8.2)
[2022-01-25 18:31] LABS: Amylase 54 U/L (25-115)
== END 2022-01-25 15:49 | disposition home or self-care (01) ==
LOC: NCHCN 15:48
PROVIDERS: PCP Physician Assistant Medical; Visit Provider Physician Assistant Medical
DX: R10.12 Left upper quadrant pain (principal)
CPT/HCPCS: 80053; 83690; 82150; 85025

== ENCOUNTER 2022-02-24 15:05 | Emergency (ER) | payer BC, SELFPAY ==
[2022-02-24 15:09] VITALS: BP 129/82; PULSE 114; RESP 20; TEMP 37.6; O2SAT 96
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
[2022-02-24] MEDS: Acetaminophen 325 MG TAB 650 MG PO (16:25)
== END 2022-02-24 16:45 | disposition home or self-care (01) ==
PROVIDERS: Emergency Provider Registered Nurse Emergency; PCP Physician Assistant Medical
DX: B34.9 Viral infection, unspecified (principal); Z20.822 Contact with and (suspected) exposure to COVID-19; I10 Essential (primary) hypertension; E66.9 Obesity, unspecified
CPT/HCPCS: 99283; 99284

== ENCOUNTER 2023-01-31 13:54 | Outpatient (REF) | payer BC, SELFPAY ==
[2023-01-31 18:53] LABS: Abs Immature Grans 0.11 10^3/uL (0.0-0.06); Absolute Basophil Count 0.09 10^3/uL (0.0-0.2); Absolute Eosinophil Count 0.32 10^3/uL (0.0-0.7); Absolute Lymphocyte Count 3.93 10^3/uL (1.2-3.4); Basophils % 0.5; Eosinophils % 1.9; HCT 41.8 % (36.0-46.0); HGB 13.2 g/dL (11.2-15.7); Immature Grans % 0.6; Lymphocytes % 23.1; MCH 27.8 pg (27.0-33.0); MCHC 31.6 % (32.0-36.0); MCV 88 fL (80-95); MPV 12.4 fL (8.0-11.0); Monocytes % 5.6; Neutrophils % 68.3; Platelet Count 425 10^3/uL (130-400); RBC 4.75 10^6/uL (3.93-5.22); RDW 14.5 % (11.7-14.6); RDW-SD 46.6 fL; WBC 17.03 10^3/uL (4.4-10.8)
[2023-01-31 18:54] LABS: Absolute Monocyte Count 0.95 10^3/uL (0.1-0.8); Absolute Neutrophil Count 11.63 10^3/uL (1.2-6.7)
[2023-01-31 19:07] LABS: ALT 50 U/L (14-59); AST 26 U/L (15-37); Albumin 3.6 g/dL (3.4-5.0); Alkaline Phosphatase 84 U/L (46-116); Anion Gap 12.6 mmol/L (3-11); BUN 14 mg/dL (7-18); Bilirubin, Total 0.5 mg/dL (0.2-1.0); CO2 21.4 mmol/L (21.0-32.0); CREATININE 1.3 mg/dL (0.55-1.02); Calculated LDL 78 mg/dL (<100); Chloride 103 mmol/L (98-107); Cholesterol 153 mg/dL (<200); Estimated GFR 54.31 (mL/min/1.73m2); Glucose 131 mg/dL (74-106); HDL Cholesterol 52 mg/dL (40-60); Potassium 4.2 mmol/L (3.5-5.1); Sodium 137 mmol/L (136-145); Total Protein 8.3 g/dL (6.4-8.2); Triglyceride 119 mg/dL (<150)
[2023-01-31 19:29] LABS: Hemoglobin A1C 5.6 % (<5.7)
== END 2023-01-31 13:55 | disposition home or self-care (01) ==
LOC: NCHCN 13:54
PROVIDERS: PCP Physician Assistant Medical; Visit Provider Physician Assistant Medical
DX: Z00.00 Encounter for general adult medical examination without abnormal findings (principal); D72.829 Elevated white blood cell count, unspecified; E66.01 Morbid (severe) obesity due to excess calories; I10 Essential (primary) hypertension; R73.09 Other abnormal glucose
CPT/HCPCS: 80053; 80061; 83036; 85025

== ENCOUNTER 2023-08-08 18:35 | Outpatient (REF) | payer OTHER, SELFPAY ==
[2023-08-08 19:26] LABS: Hemoglobin A1C 5.8 % (<5.7)
[2023-08-08 19:40] LABS: Anion Gap 13.2 mmol/L (3-11); BUN 12 mg/dL (7-18); CO2 20.8 mmol/L (21.0-32.0); CREATININE 1.2 mg/dL (0.55-1.02); Calcium 9.9 mg/dL (8.5-10.1); Chloride 105 mmol/L (98-107); Estimated GFR 59.79 (mL/min/1.73m2); Glucose 147 mg/dL (74-106); Potassium 4.6 mmol/L (3.5-5.1); Sodium 139 mmol/L (136-145)
== END 2023-08-08 18:36 | disposition home or self-care (01) ==
LOC: NCHCN 18:35
PROVIDERS: PCP Physician Assistant Medical; Visit Provider Physician Assistant Medical
DX: R30.0 Dysuria (principal); R73.03 Prediabetes; R82.89 Other abnormal findings on cytological and histological examination of urine
CPT/HCPCS: 80048; 83036; 87086

== ENCOUNTER 2023-09-09 16:41 | Outpatient (REF) | payer OTHER, SELFPAY | END 2023-09-09 16:42 | disposition home or self-care (01) | LOC: NCHCN 16:41 | PROVIDERS: PCP Physician Assistant Medical; Visit Provider Physician Assistant Medical | DX: R31.29 Other microscopic hematuria (principal); B96.89 Other specified bacterial agents as the cause of diseases classified elsewhere | CPT/HCPCS: 87086 ==

== ENCOUNTER 2024-05-24 13:55 | Outpatient (REF) | payer OTHER, SELFPAY ==
[2024-05-24 16:30] LABS: Hemoglobin A1C 5.6 % (<5.7)
[2024-05-24 16:43] LABS: ALT 41 U/L (14-59); AST 36 U/L (15-37); Albumin 3.6 g/dL (3.4-5.0); Alkaline Phosphatase 81 U/L (46-116); Anion Gap 11.6 mmol/L (3-11); BUN 10 mg/dL (7-18); Bilirubin, Total 0.65 mg/dL (0.2-1.0); CO2 21.4 mmol/L (21.0-32.0); Calcium 9.9 mg/dL (8.5-10.1); Chloride 105 mmol/L (98-107); Estimated GFR 73.95 (mL/min/1.73m2); Glucose 120 mg/dL (74-106); Magnesium 2.1 mg/dL (1.8-2.4); Potassium 4.4 mmol/L (3.5-5.1); Sodium 138 mmol/L (136-145); TSH (W/Ref FT4) 1.44 uIU/mL (0.36-3.74); Total Protein 8.1 g/dL (6.4-8.2)
[2024-05-24 17:03] LABS: Calculated LDL 75 mg/dL (<100); Cholesterol 161 mg/dL (<200); HDL Cholesterol 48 mg/dL (40-60); Triglyceride 191 mg/dL (<150)
== END 2024-05-24 13:56 | disposition home or self-care (01) ==
LOC: NCHCN 13:55
PROVIDERS: PCP Physician Assistant Medical; Visit Provider Physician Assistant Medical
DX: E66.9 Obesity, unspecified (principal); I10 Essential (primary) hypertension; R73.03 Prediabetes
CPT/HCPCS: 80053; 80061; 83036; 83735; 84443

== ENCOUNTER 2024-05-29 20:26 | Outpatient (REF) | payer OTHER, SELFPAY ==
[2024-05-29 20:44] LABS: Bacteria Rare HPF (Negative); C & S Indicated? C&S Done As Ordered; Crystals Negative HPF (Negative); Epithelial Cells Moderate HPF (Negative); Mucus Negative (Negative); RBC 0-2 HPF (0-2); WBC 0-2 HPF (0-5)
== END 2024-05-29 20:27 | disposition home or self-care (01) ==
LOC: LBN 20:26
PROVIDERS: PCP Physician Assistant Medical; Visit Provider Physician Assistant Medical
DX: R10.2 Pelvic and perineal pain (principal)
CPT/HCPCS: 81015; 87086

== ENCOUNTER 2024-07-28 15:17 | Outpatient (REF) | payer OTHER, SELFPAY ==
[2024-07-28 15:58] LABS: Abs Immature Grans 0.28 10^3/uL (0.0-0.06); HCT 42.4 % (36.0-46.0); HGB 13.2 g/dL (11.2-15.7); MCH 27.6 pg (27.0-33.0); MCHC 31.1 % (32.0-36.0); MCV 89 fL (80-95); Platelet Count 445 10^3/uL (130-400); RBC 4.79 10^6/uL (3.93-5.22); RDW 14.7 % (11.7-14.6); RDW-SD 47.5 fL; WBC 24.31 10^3/uL (4.4-10.8)
[2024-07-28 16:02] LABS: ESR 69 mm/hr (0-20)
[2024-07-28 16:17] LABS: Absolute Neutrophil Count 15.07 10^3/uL (1.2-6.7)
[2024-07-28 16:18] LABS: Absolute Eosinophil Count 0.49 10^3/uL (0.0-0.7); Absolute Lymphocyte Count 6.32 10^3/uL (1.2-3.4); Absolute Monocyte Count 2.43 10^3/uL (0.1-0.8); Atypical Lymphocytes % 2 %; Diff Comment Manual Differential; RBC Morphology Normal
[2024-07-30 11:06] LABS: Lyme Ab w Rflx to Lyme Confirm Negative (Negative)
[2024-08-02 09:33] LABS: Anaplasma phagocytophilum Negative (Negative); B. miyamotoi PCR Negative (Negative); Babesia divergens/MO-1 Negative (Negative); Babesia duncani Negative (Negative); Babesia microti Negative (Negative); Ehrlichia chaffeensis Negative (Negative); Ehrlichia ewingii/canis Negative (Negative); Ehrlichia muris eauclairensis Negative (Negative)
== END 2024-07-28 15:18 | disposition home or self-care (01) ==
LOC: NCHCN 15:17
PROVIDERS: PCP Physician Assistant Medical; Visit Provider Physician Assistant Medical
DX: R68.84 Jaw pain (principal)
CPT/HCPCS: 85652; 87798; 85025; 86618

== ENCOUNTER 2024-08-04 17:50 | Outpatient (REF) | payer OTHER, SELFPAY | END 2024-08-04 17:51 | disposition home or self-care (01) | LOC: LBN 17:50 | PROVIDERS: PCP Physician Assistant Medical; Visit Provider Urology | DX: N20.0 Calculus of kidney (principal); R39.9 Unspecified symptoms and signs involving the genitourinary system | CPT/HCPCS: 87086 ==

== ENCOUNTER 2024-08-11 15:54 | Outpatient (REF) | payer OTHER, SELFPAY ==
[2024-08-11 20:15] LABS: Abs Immature Grans 0.13 10^3/uL (0.0-0.06); Absolute Basophil Count 0.13 10^3/uL (0.0-0.2); Absolute Eosinophil Count 0.44 10^3/uL (0.0-0.7); Absolute Lymphocyte Count 4.71 10^3/uL (1.2-3.4); Absolute Neutrophil Count 11.84 10^3/uL (1.2-6.7); Basophils % 0.7 %; Eosinophils % 2.4 %; HCT 40.2 % (36.0-46.0); HGB 12.7 g/dL (11.2-15.7); Immature Grans % 0.7 %; Lymphocytes % 25.9 %; MCH 27.4 pg (27.0-33.0); MCHC 31.6 % (32.0-36.0); MCV 87 fL (80-95); MPV 12.3 fL (8.0-11.0); Monocytes % 5.2 %; Neutrophils % 65.1 %; Platelet Count 405 10^3/uL (130-400); RBC 4.64 10^6/uL (3.93-5.22); RDW 14.9 % (11.7-14.6); WBC 18.19 10^3/uL (4.4-10.8)
[2024-08-11 20:23] LABS: Absolute Monocyte Count 0.95 10^3/uL (0.1-0.8)
[2024-08-11 20:38] LABS: Anion Gap 12.3 mmol/L (3-11); BUN 12 mg/dL (7-18); CO2 23.7 mmol/L (21.0-32.0); Calcium 10.1 mg/dL (8.5-10.1); Chloride 103 mmol/L (98-107); Estimated GFR 73.95 (mL/min/1.73m2); Glucose 121 mg/dL (74-106); Potassium 4.6 mmol/L (3.5-5.1); Sodium 139 mmol/L (136-145)
== END 2024-08-11 15:55 | disposition home or self-care (01) ==
LOC: NCHCN 15:54
PROVIDERS: PCP Physician Assistant Medical; Visit Provider Physician Assistant Medical
DX: R70.0 Elevated erythrocyte sedimentation rate (principal); D72.829 Elevated white blood cell count, unspecified
CPT/HCPCS: 80048; 85025